=== PATIENT | female | born 1985 | race Asian ===

== ENCOUNTER 2018-01-16 05:37 | Inpatient (IN) | payer BC ==
[2018-01-16] VITALS (45 sets, daily range): BP systolic 15–1115; BP diastolic 51–710; PULSE 66–90; TEMP 97.6–98.4
[~2018-01-16] VITALS: Ht 165.1 cm; Wt 70.0 kg
[2018-01-16] MEDS ORDERED: PRENATAL MVI (06:35)
[2018-01-16 08:25] LABS: BASO % 0.2 % (0.0-2.0); EOS % 0.2 % (0-4.0); GRAN # 9.9 (1.4-6.5); GRAN % 79.8 % (42.2-75.2); HEMOGLOBIN 11.3 g/dl (12.5-16.0); LYMPH # 1.6 (1.2-3.4); MEAN CELL VOLUME 92 fl (80.0-100.0); MEAN CORPUSCULAR HEMOGLOBIN 30 pg (27.0-31.0); MEAN CORPUSCULAR HGB CONC 32 g/dl (33.0-37.0); MEAN PLATELET VOLUME 10.7 fl (7.4-10.4); MONO # 0.8 (0.1-0.6); MONO % 6.3 % (1.7-9.3); PLATELET COUNT 152 K/mm3 (130-400); RED BLOOD COUNT 3.79 M/mm3 (4.10-5.30); REDCELL DISTRIBUTION WIDTH-CV 12.9 % (11.5-14.5)
[2018-01-17 02:45] VITALS: BP 113/71; PULSE 78
[2018-01-17] MEDS ORDERED: PERCOCET 325 MG1 TA2 PO (06:14)
[2018-01-17] MEDS ORDERED: MOTRIN 800800 MG/TAB PO (06:14)
[2018-01-17 08:00] VITALS: BP 98/55; PULSE 82; TEMP 97.6
[2018-01-17 15:58] VITALS: BP 99/62; PULSE 82; TEMP 97.7
[2018-01-17 20:50] VITALS: BP 112/73; PULSE 93; TEMP 97.8
[2018-01-18 07:45] VITALS: BP 110/72; PULSE 79; TEMP 97.8
== END 2018-01-18 08:55 | disposition home or self-care (01) | DRG 774 ==
LOC: LDRO 05:37 → LDR 07:07 → OB 01-17 03:00
PROVIDERS: Obstetrics & Gynecology
PROC: 10E0XZZ Delivery of Products of Conception, External Approach (ICD-10-PCS; principal; 2018-01-16)
PROC: 0HQ9XZZ Repair Perineum Skin, External Approach (ICD-10-PCS; 2018-01-16)
DX: O60.14X0 Preterm labor third trimester with preterm delivery third trimester, not applicable or unspecified (principal); O45.93 Premature separation of placenta, unspecified, third trimester; O99.824 Streptococcus B carrier state complicating childbirth; O70.0 First degree perineal laceration during delivery; O69.81X0 Labor and delivery complicated by cord around neck, without compression, not applicable or unspecified; O62.2 Other uterine inertia; Z37.0 Single live birth; Z3A.35 35 weeks gestation of pregnancy
CPT/HCPCS: J0595; J2210; J2540; J2590; J2795; J7120

== ENCOUNTER → 2021-06-01 | Outpatient (CLI) | payer BC ==
[~2021-06-01] MED LIST: MOTRIN 800800 MG/TAB PO; PERCOCET 325 MG1 TA2 PO; PRENATAL MVI
== END ==
LOC: MC.RAD 07:01
DX: Z12.31 Encounter for screening mammogram for malignant neoplasm of breast (principal)

== ENCOUNTER → 2021-06-18 | Outpatient (CLI) | payer BC | LOC: MC.RAD 12:46 | DX: N63.23 Unspecified lump in the left breast, lower outer quadrant (principal) ==

== ENCOUNTER → 2021-07-10 | Outpatient (CLI) | payer BC | LOC: MC.RAD 07:50 | DX: N63.23 Unspecified lump in the left breast, lower outer quadrant (principal); Z98.82 Breast implant status ==

== ENCOUNTER 2023-11-30 17:48 | Emergency (ER) | payer BC ==
[~2023-11-30] VITALS: Ht 167.6 cm; Wt 56.8 kg
[2023-11-30 17:54] VITALS: TEMP 97.7
[2023-11-30] MEDS ORDERED: Ondansetron 4 MG/2 ML VIAL IV ONE (18:15)
[2023-11-30] MEDS ORDERED: LR 1,000 ML IV ONE (18:15)
[2023-11-30] MEDS ORDERED: Meclizine 25 MG TAB PO ONE (18:15)
[2023-11-30 18:47] LABS: BASO % 0.3 % (0.0-2.0); EOS # 0.1 K/mm3 (0.0-0.7); EOS % 1.1 % (0.0-4.0); GRAN % 79.6 % (42.2-75.2); HEMATOCRIT 38.6 % (37.0-47.0); HEMOGLOBIN 12.2 g/dl (12.5-16.0); LYMPH # 1.2 K/mm3 (1.2-3.4); LYMPH % 13.8 % (20.0-51.0); MEAN CELL VOLUME 91 fl (80.0-100.0); MEAN CORPUSCULAR HEMOGLOBIN 29 pg (27-31); MEAN CORPUSCULAR HGB CONC 32 g/dl (33.0-37.0); MEAN PLATELET VOLUME 10.3 fl (7.4-10.4); MONO # 0.4 K/mm3 (0.1-0.6); MONO % 4.9 % (1.7-9.3); PLATELET COUNT 178 K/mm3 (130-400); RED BLOOD COUNT 4.23 M/mm3 (4.10-5.30); REDCELL DISTRIBUTION WIDTH-CV 13.1 % (11.5-14.5)
[2023-11-30 18:52] LABS: PH 6.5 (5.0-8.5); URINE APPEARANCE CLOUDY (CLEAR/HAZY); URINE BLOOD NEGATIVE (NEGATIVE); URINE COLOR YELLOW (YELLOW); URINE GLUCOSE NEGATIVE (NEGATIVE); URINE KETONE NEGATIVE (NEGATIVE); URINE NITRATE NEGATIVE (NEGATIVE); URINE PROTEIN(semi-quant) NEGATIVE (NEGATIVE)
[2023-11-30 19:05] LABS: ALBUMIN 4.1 g/dL (3.5-5.0); BILIRUBIN,TOTAL 0.3 mg/dL (0.2-1.2); C-REACTIVE PROTEIN 0.04 mg/dL (0.00-0.50); CALCIUM 8.8 mg/dL (8.4-10.2); CREATININE, serum 0.68 mg/dL (0.57-1.11); POTASSIUM 3.6 mEq/L (3.5-4.5); TOTAL PROTEIN 7.3 g/dl (6.2-8.1)
[2023-11-30 19:43] LABS: COLLECTION METHOD CLEAN CATCH
[2023-11-30] MEDS ORDERED: BONINE25 MG PO (19:49)
[2023-11-30 20:26] VITALS: BP 107/64; PULSE 74
== END 2023-11-30 20:26 | disposition home or self-care (01) ==
LOC: COL.ER 17:48
PROVIDERS: Family Medicine
DX: H83.09 Labyrinthitis, unspecified ear (principal)
CPT/HCPCS: J2405; J7120